=== PATIENT | female | born 1940 | race African-American/Black ===

== ENCOUNTER 2025-06-07 09:17 | Outpatient (CLI) | payer OTHER, MEDICAID | END 2025-06-07 09:18 | disposition home or self-care (01) | LOC: CSHRAD 09:17 | PROVIDERS: ATTEND Internal Medicine | DX: M47.816 Spondylosis without myelopathy or radiculopathy, lumbar region (principal); Z98.890 Other specified postprocedural states | CPT/HCPCS: 72070; 72100 ==